=== PATIENT | male | born 1990 | race African-American/Black ===

== ENCOUNTER 2022-06-17 10:54 | Emergency (ER) | payer SELFPAY ==
[2022-06-17 13:28] LABS: C. TRACHOMATIS BY PCR NOT DETECTED; N. GONORRHOEAE BY PCR NOT DETECTED
== END 2022-06-17 14:07 | disposition home or self-care (01) ==
LOC: MW.ED 10:54
DX: N48.89 Other specified disorders of penis (principal); F17.210 Nicotine dependence, cigarettes, uncomplicated
CPT/HCPCS: 81003; 87491; 87591; 99283

== ENCOUNTER 2022-07-09 13:58 | Emergency (ER) | payer SELFPAY | END 2022-07-09 15:56 | disposition home or self-care (01) | LOC: MW.ED 13:58 | DX: M67.824 Other specified disorders of tendon, left elbow (principal); Z79.899 Other long term (current) drug therapy; Z72.0 Tobacco use | CPT/HCPCS: 73080-26-LT; 73080-LT; 99283 ==

== ENCOUNTER 2022-08-19 14:11 | Emergency (ER) | payer SELFPAY ==
[2022-08-19 16:40] LABS: C. TRACHOMATIS BY PCR NOT DETECTED; N. GONORRHOEAE BY PCR NOT DETECTED
== END 2022-08-19 18:03 | disposition home or self-care (01) ==
LOC: MW.ED 14:11
DX: S30.812A Abrasion of penis, initial encounter (principal); Z72.0 Tobacco use
CPT/HCPCS: 36415; 86592; 87389; 87491; 87591; 99283

== ENCOUNTER 2023-01-01 09:11 | Emergency (ER) | payer SELFPAY ==
[2023-01-01] MEDS ORDERED: Sodium Chloride 0.9% 1,000 ML IV ONE (09:19)
[2023-01-01] MEDS ORDERED: Sodium Chloride 0.9% 2.5 ML Syringe FLUSH PRN (09:19)
[2023-01-01] MEDS ORDERED: Sodium Chloride 0.9% 10 ML Syringe FLUSH PRN (09:19)
[2023-01-01 09:35] LABS: BASOPHILS PERCENT AUTO 0.4 % (0.0-1.5); EOSINOPHILS ABSOLUTE AUTO 0.2 K/uL (0.0-0.7); EOSINOPHILS PERCENT AUTO 3.5 % (0.0-7.0); HEMOGLOBIN 15.7 g/dL (13.0-17.0); LYMPHOCYTES ABSOLUTE AUTO 2.2 K/uL (0.6-2.4); LYMPHOCYTES PERCENT AUTO 48.1 % (16.0-40.0); MEAN CORPUSCULAR HEMOGLOBIN 30.9 pg (27.0-32.0); MEAN CORPUSCULAR HGB CONC 34.1 g/dL (31.0-37.0); MEAN CORPUSCULAR VOLUME 90.6 fL (80.0-98.0); MONOCYTES ABSOLUTE AUTO 0.4 K/uL (0.0-0.8); MONOCYTES PERCENT AUTO 7.7 % (0.0-15.0); NEUTROPHILS ABSOLUTE AUTO 1.8 K/uL (1.4-5.7); NEUTROPHILS PERCENT AUTO 40.3 % (48.0-80.0); NRBC ABSOLUTE 0 K/uL; PLATELET COUNT,PLT 230 K/uL (150-400); RED BLOOD CELL COUNT 5.08 M/uL (4.50-5.90); WHITE BLOOD CELL COUNT,WBC 4.55 K/uL (4.0-11.0)
[2023-01-01 10:04] LABS: ALBUMIN 3.8 g/dL (3.4-5.0); BILIRUBIN TOTAL 0.6 mg/dL (0.2-1.0); CALCIUM 8.7 mg/dL (8.5-10.1); CREATININE 1.1 mg/dL (0.8-1.3); EST CRCL DRUG DOSING (CG) 91.55 mL/min; POTASSIUM,K 4.1 mmol/L (3.5-5.1); PROTEIN TOTAL,TP 7.5 g/dL (6.4-8.2)
[2023-01-01 10:42] LABS: APPEARANCE,URINE CLEAR; BILIRUBIN,URINE NEGATIVE (NEGATIVE); COLOR,URINE YELLOW; GLUCOSE,URINE NEGATIVE (NEGATIVE); KETONES,URINE NEGATIVE (NEGATIVE); LEUKOCYTE ESTERASE,URINE NEGATIVE (NEGATIVE); NITRITE,URINE NEGATIVE (NEGATIVE); OCCULT BLOOD,URINE NEGATIVE (NEGATIVE); PH,URINE 7.5 (5.0-8.0); PROTEIN,URINE NEGATIVE (NEGATIVE); UROBILINOGEN,URINE 0.2 EU/dL (<2.0)
[2023-01-01 12:12] LABS: C. TRACHOMATIS BY PCR NOT DETECTED; N. GONORRHOEAE BY PCR NOT DETECTED
== END 2023-01-01 13:28 | disposition home or self-care (01) ==
LOC: MW.ED 09:11
DX: R31.9 Hematuria, unspecified (principal)
CPT/HCPCS: 36415; 74176; 80053; 81003; 82550; 85025; 87491; 87591; 99284; J3490; J7030; 99283

== ENCOUNTER 2023-01-08 05:52 | Emergency (ER) | payer SELFPAY ==
[2023-01-08] MEDS ORDERED: LORazepam 1 MG Tab PO ONE (06:12)
[2023-01-08] MEDS ORDERED: Ibuprofen 600 MG Tab PO ONE (06:12)
[2023-01-08] MEDS ORDERED: Acetaminophen/HYDROcodone 325-5 MG Tab PO ONE (06:12)
== END 2023-01-08 07:15 | disposition home or self-care (01) ==
LOC: MW.ED 05:52
DX: M54.50 Low back pain, unspecified (principal)
CPT/HCPCS: 99283; A9270

== ENCOUNTER 2023-02-06 20:46 | Emergency (ER) | payer SELFPAY | END 2023-02-06 21:15 | disposition home or self-care (01) | LOC: MW.ED 20:46 | DX: B00.9 Herpesviral infection, unspecified (principal) | CPT/HCPCS: 99282 ==

== ENCOUNTER 2023-11-06 21:06 | Emergency (ER) | payer SELFPAY ==
[2023-11-06 21:37] LABS: BASOPHILS ABSOLUTE AUTO 0.04 K/uL (0.00-0.20); BASOPHILS PERCENT AUTO 0.7 % (0.0-1.0); EOSINOPHILS ABSOLUTE AUTO 0.12 K/uL (0.00-0.45); HEMATOCRIT 43.8 % (42.0-52.0); HEMOGLOBIN 15.6 g/dL (14.0-18.0); IMMATURE GRAN ABSOLUTE AUTO 0.04 K/uL (0.00-0.05); IMMATURE GRAN PERCENT AUTO 0.7 % (0.0-0.4); LYMPHOCYTES ABSOLUTE AUTO 2.66 K/uL (1.00-4.80); LYMPHOCYTES PERCENT AUTO 43.6 % (24.0-44.0); MEAN CORPUSCULAR HEMOGLOBIN 31.1 pg (28.0-32.0); MEAN CORPUSCULAR HGB CONC 35.6 g/dL (32.0-36.0); MEAN CORPUSCULAR VOLUME 87.3 fL (83.0-99.0); MEAN PLATELET VOLUME 10.1 fL (9.4-12.4); MONOCYTES ABSOLUTE AUTO 0.53 K/uL (0.00-0.80); MONOCYTES PERCENT AUTO 8.7 % (0.0-8.0); NEUTROPHILS ABSOLUTE AUTO 2.71 K/uL (1.80-7.70); NEUTROPHILS PERCENT AUTO 44.3 % (41.0-71.0); PLATELET COUNT,PLT 226 K/uL (150-400); RED BLOOD CELL COUNT 5.02 M/uL (4.52-5.90)
[2023-11-06] MEDS: Sodium Chloride 0.9% 1,000 ML IV ONE (21:43)
[2023-11-06 22:08] LABS: ALBUMIN 4.1 g/dL (3.4-5.0); BILIRUBIN TOTAL 0.5 mg/dL (0.2-1.0); CALCIUM 9.5 mg/dL (8.5-10.1); CARBON DIOXIDE,CO2 28.1 mmol/L (21.0-32.0); CREATININE 1.2 mg/dL (0.8-1.3); EST CRCL DRUG DOSING (CG) 80.33 mL/min; POTASSIUM,K 3.5 mmol/L (3.5-5.1); PROTEIN TOTAL,TP 8.1 g/dL (6.4-8.2); TSH ULTRASENSITIVE 1.73 uIU/mL (0.36-3.74)
== END 2023-11-06 22:50 | disposition home or self-care (01) ==
LOC: MW.ED 21:06
DX: R00.2 Palpitations (principal); Z75.8 Other problems related to medical facilities and other health care
CPT/HCPCS: 36415; 71045; 80053; 84443; 84484; 85025; 93005; 96360; 99285; J7030; 93010; 99283

== ENCOUNTER 2024-02-26 08:18 | Emergency (ER) | payer SELFPAY ==
[2024-02-26] MEDS: Dexamethasone 4 MG Tab PO ONE (08:57)
[2024-02-26] MEDS: Acetaminophen 500 MG Tab PO ONE (08:58)
[2024-02-26] MEDS: Lidocaine 2% Viscous Solution 15 ML UD PO ONE (08:58)
[2024-02-26] MEDS: Ketorolac 30 MG/ML SDV IM ONE (08:58)
[2024-02-26] MEDS: Alum Hydrox/Mag Hydrox/Simeth 15 ML, Lidocaine 2% 5 ML PO ONE (09:01)
== END 2024-02-26 10:27 | disposition home or self-care (01) ==
LOC: MW.ED 08:18
DX: J02.0 Streptococcal pharyngitis (principal); R04.2 Hemoptysis; F17.210 Nicotine dependence, cigarettes, uncomplicated
CPT/HCPCS: 71045; 87651; 96372; 99283; A9270; J1885; J8540

== ENCOUNTER 2024-04-01 05:24 | Emergency (ER) | payer SELFPAY ==
[2024-04-01] MEDS: Ibuprofen 400 MG Tab PO ONE (05:38)
[2024-04-01] MEDS: Acetaminophen 500 MG Tab PO ONE (05:38)
[2024-04-01 06:23] LABS: CORONAVIRUS COVID-19 NAA POSITIVE (NEGATIVE); INFLUENZA A NAA NEGATIVE (NEGATIVE); INFLUENZA B NAA NEGATIVE (NEGATIVE); RESPIRATORY SYNCYTIAL VIR NAA NEGATIVE (NEGATIVE)
== END 2024-04-01 06:55 | disposition home or self-care (01) ==
LOC: MW.ED 05:24
DX: U07.1 COVID-19 (principal)
CPT/HCPCS: 0241U; 99284; A9270; 99283

== ENCOUNTER 2024-04-21 18:50 | Emergency (ER) | payer SELFPAY ==
[2024-04-21] MEDS: Ibuprofen 600 MG Tab PO ONE (19:36)
[2024-04-21] MEDS: Dexamethasone 4 MG/ML SDV IVPUSH ONE (19:36)
[2024-04-21] MEDS: Acetaminophen 500 MG Tab PO ONE (19:37)
== END 2024-04-21 20:21 | disposition home or self-care (01) ==
LOC: MW.ED 18:50
DX: J02.8 Acute pharyngitis due to other specified organisms (principal); K02.9 Dental caries, unspecified
CPT/HCPCS: 87651; 96374; 99284; A9270; J1100

== ENCOUNTER 2024-07-24 21:47 | Emergency (ER) | payer SELFPAY ==
[2024-07-24] MEDS: Ibuprofen 600 MG Tab PO ONE (22:01)
[2024-07-24] MEDS: Acetaminophen 500 MG Tab PO ONE (23:17)
== END 2024-07-24 23:53 | disposition home or self-care (01) ==
LOC: MW.ED 21:47
DX: S62.521A Displaced fracture of distal phalanx of right thumb, initial encounter for closed fracture (principal); Z79.899 Other long term (current) drug therapy; W23.0XXA Caught, crushed, jammed, or pinched between moving objects, initial encounter; Y93.89 Activity, other specified
CPT/HCPCS: 73130; 99283; A9270

== ENCOUNTER 2024-07-28 10:58 | Emergency (ER) | payer SELFPAY | END 2024-07-28 12:51 | disposition left against medical advice (07) | LOC: MW.ED 10:58 | DX: Z53.21 Procedure and treatment not carried out due to patient leaving prior to being seen by health care provider (principal) ==

== ENCOUNTER 2024-08-02 15:21 | Emergency (ER) | payer SELFPAY | END 2024-08-02 15:58 | disposition home or self-care (01) | LOC: MW.ED 15:21 | DX: S62.521A Displaced fracture of distal phalanx of right thumb, initial encounter for closed fracture (principal); X58.XXXA Exposure to other specified factors, initial encounter | CPT/HCPCS: 99283 ==

== ENCOUNTER 2024-11-29 20:40 | Emergency (ER) | payer BC ==
[2024-11-29] MEDS: Orphenadrine 60 MG/2 ML Inj IM ONE (22:22)
[2024-11-29] MEDS: Ketorolac 30 MG/ML SDV IM ONE (22:22)
[2024-11-29] MEDS: Acetaminophen 500 MG Tab PO ONE (22:23)
[2024-11-29] MEDS: Lidocaine 4% Patch TOP ONE (22:23)
[2024-11-29] MEDS: Dexamethasone 4 MG Tab PO ONE (22:23)
== END 2024-11-29 23:11 | disposition home or self-care (01) ==
LOC: MW.ED 20:40
DX: M54.50 Low back pain, unspecified (principal); F17.210 Nicotine dependence, cigarettes, uncomplicated; Z79.899 Other long term (current) drug therapy; Z75.3 Unavailability and inaccessibility of health-care facilities
CPT/HCPCS: 96372; 99283; A9270; J1885; J2360; J8540

== ENCOUNTER 2024-12-22 12:41 | Emergency (ER) | payer BC | END 2024-12-22 14:40 | disposition home or self-care (01) | LOC: MW.ED 12:41 | DX: J06.9 Acute upper respiratory infection, unspecified (principal) | CPT/HCPCS: 87428-QW; 99282; 99283 ==

== ENCOUNTER 2025-02-12 08:15 | Emergency (ER) | payer BC | END 2025-02-12 09:16 | disposition home or self-care (01) | LOC: MW.ED 08:15 | DX: J02.9 Acute pharyngitis, unspecified (principal) | CPT/HCPCS: 87651; 99283; A9270; J8540 ==

== ENCOUNTER 2025-04-04 20:44 | Emergency (ER) | payer BC | END 2025-04-04 21:36 | disposition home or self-care (01) | LOC: MW.ED 20:44 | DX: K64.9 Unspecified hemorrhoids (principal); F17.200 Nicotine dependence, unspecified, uncomplicated; Z79.899 Other long term (current) drug therapy | CPT/HCPCS: 99282; 99283 ==